=== PATIENT | male | born 1985 | race American Indian/Alaskan Native ===

== ENCOUNTER 2016-07-26 17:17 | Emergency (ER) | payer SELFPAY ==
[2016-07-26] MEDS ORDERED: ZOFRAN ODT PO ONE (18:28)
--- NOTE | 2016-07-26 18:29 | Emergency Department Report ---
Entered by ROSCOE LUDWIG, acting as scribe for REJI SALAZAR NP. Chief Complaint: Nausea/Vomiting/Diarrhea Stated Complaint: NAUSEA/VOMITING - HPI History of Present Illness: 30 y/o male, non toxic, NAD, well developed, c/o nausea and vomiting beginning yesterday. Associated chest pain, SOB, subjective fever, constipation but denies , RASCON, dizziness, blurry vision. Patient was seen at [facility] yesterday for the same c/o and was Dx with a incomplete small bowel obstruction versus ileus. - Exam Vital Signs: Vital Signs 07/26/16 17:29 Temperature 98.2 F Pulse Rate 62 Respiratory 18 Rate Blood Pressure 156/100 O2 Sat by Pulse 100 Oximetry Physical Exam: GENERAL: The patient is a well-developed, well-nourished male in no apparent distress. Patient is alert and oriented x3. ABDOMEN: Soft, nontender, and nondistended. Positive bowel sounds. Diffuse abdominal pain. No hepatosplenomegaly was noted. No guarding or rebound tenderness, negative epigastric bruit. Negative psoas sign, negative concepcion sign , negative McBurneys sign MSE screening note: Focused history and physical exam performed. Due to findings the following was ordered: CBC, CMP, Lipase, amylase, CT abdomen pelvis with contrast Dr. Gregory has been notified about patient symptoms Charge nurse has been notified to have patient seen in the ED as soon as possible for a CT of abdomen/pelvis with contrast Patient received 8 mg of Zofran ODT in triage. Patient discussed with doctor:: JESSE GREGORY (CT abdomen/contrast) ED Disposition for MSE Condition: Stable This documentation as recorded by the scribe,ROSCOE LUDWIG,accurately reflects the service I personally performed and the decisions made by ,REJI SALAZAR, KRISTOPHER.
[2016-07-26 18:47] LABS: Basophils % (Auto) 0.6 % (0.0-1.8); Eosinophils % (Auto) 0.1 % (0.0-4.3); Hematocrit 43.8 % (35.5-45.6); Hemoglobin 14.7 gm/dl (11.8-15.2); Mean Corpuscular HGB Conc 34 % (32-34); Mean Corpuscular Hemoglobin 30 pg (28-32); Mean Corpuscular Volume 89 fl (84-94); Platelet Count 276 K/mm3 (140-440); Red Blood Count 4.95 M/mm3 (3.65-5.03); Red Cell Distribution Width 14.3 % (13.2-15.2); White Blood Count 6.9 K/mm3 (4.5-11.0)
[2016-07-26 19:02] LABS: Alanine Aminotransferase 19 units/L (7-56); Albumin 4.4 g/dL (3.9-5); Albumin/Globulin Ratio 1.3 %; Alkaline Phosphatase 66 units/L (35-129); Amylase 74 units/L (27-131); Anion Gap 19 mmol/L; BUN/Creatinine Ratio 13.33; Blood Urea Nitrogen 12 mg/dL (9-20); Calcium 9.3 mg/dL (8.4-10.2); Carbon Dioxide 25 mmol/L (22-30); Chloride 96.8 mmol/L (98-107); Glucose 105 mg/dL (75-100); Lipase 35 units/L (13-60); Potassium 3.9 mmol/L (3.6-5.0); Sodium 137 mmol/L (137-145); Total Protein 7.9 g/dL (6.3-8.2)
[2016-07-26] MEDS ORDERED: REGLAN ONE (19:50)
[2016-07-26] MEDS ORDERED: REGLAN IV ONE (20:12)
--- NOTE | 2016-07-26 21:05 | Cat Scan Report ---
FINAL REPORT EXAM: CT ABDOMEN PELVIS W CON HISTORY: abd pain TECHNIQUE: Spiral CT scanning of the abdomen and pelvis after the uneventful administration of IV contrast. PRIORS: None. FINDINGS: Abdomen: Visualized lung bases grossly unremarkable. Liver without significant abnormality. Probable small hemangioma in the posterior and subdiaphragmatic region of right hepatic lobe measuring approximately 1 cm. Spleen without significant abnormality. Pancreas without significant abnormality. Kidneys without significant abnormality. Bilateral renal cysts, largest measuring approximately 3.5 cm in the right kidney. Adrenal glands without significant abnormality. Pelvis: Bowel grossly unremarkable. No significant free peritoneal fluid or apparent pneumoperitoneum. Abdominal aorta non-aneurysmal. Mild, probably acute compression fracture deformity in the L2 superior endplate without significant retropulsion. Remainder of osseous structures of axial skeleton grossly unremarkable. IMPRESSION: 1. Multiplanar reformations. 100 mL Omnipaque IV. 2. No acute intraperitoneal findings.
--- NOTE | 2016-07-26 21:35 | Emergency Department Report ---
ED Abdominal Pain HPI - General Chief Complaint: Nausea/Vomiting/Diarrhea Stated Complaint: NAUSEA/VOMITING Time Seen by Provider: 07/26/16 21:13 Source: patient, family Mode of arrival: Ambulatory Limitations: No Limitations - History of Present Illness Initial Comments: Patient is a 30-year-old male with no past medical history presenting to the ER with abdominal pain, nausea, vomiting. Patient is known to me and was evaluated last night for similar symptoms and found to have a partial ileus secondary to constipation. She reports he has been taking the Colace and MiraLAX, is passing gas, but has still not had a bowel movement. Patient reports he vomited up to 10 times today. Patient reports he did try to eat today with minimal success. Patient reports his back pain is minimal and is not bothering him today. Otherwise no fevers, chills, shortness of breath, chest pain, trauma, abdominal distention, trauma, falls, gait instability, saddle anesthesia, stool or urinary incontinence, travel, or sick contacts. Note: Patient has 2 separate medical records - Related Data Home Medications Medication Instructions Recorded Confirmed Last Taken No Known Home Medications [No 07/26/16 07/26/16 Unknown Reported Home Medications] Allergies Allergy/AdvReac Type Severity Reaction Status Date / Time No Known Allergies Allergy Unverified 07/26/16 17:29 ED Review of Systems ROS: Stated complaint: NAUSEA/VOMITING Other details as noted in HPI Comment: All other systems reviewed and negative ED Past Medical Hx - Past Medical History Previous Medical History?: Yes Additional medical history: n/v - Surgical History Past Surgical History?: No - Social History Smoking Status: Never Smoker Substance Use Type: Alcohol, Prescribed - Medications Home Medications: Home Medications Medication Instructions Recorded Confirmed Last Taken Type No Known Home Medications [No 07/26/16 07/26/16 Unknown History Reported Home Medications] ED Physical Exam - General Limitations: No Limitations General appearance: alert, in no apparent distress - Head Head exam: Present: atraumatic, normocephalic - Eye Eye exam: Present: normal appearance - ENT ENT exam: Present: mucous membranes moist - Neck Neck exam: Present: normal inspection - Respiratory Respiratory exam: Present: normal lung sounds bilaterally. Absent: respiratory distress - Cardiovascular Cardiovascular Exam: Present: regular rate, normal rhythm. Absent: systolic murmur, diastolic murmur, rubs, gallop - GI/Abdominal GI/Abdominal exam: Present: soft, normal bowel sounds. Absent: distended, tenderness, guarding, rebound, hyperactive bowel sounds, hypoactive bowel sounds , organomegaly, mass, pulsatile mass, hernia - Rectal Rectal exam: Present: normal inspection, normal rectal tone - exam: Present: normal inspection External exam: Present: normal external exam - Extremities Exam Extremities exam: Present: normal inspection - Back Exam Back exam: Present: normal inspection, full ROM, paraspinal tenderness (right). Absent: tenderness - Neurological Exam Neurological exam: Present: alert, oriented X3, CN II-XII intact, normal gait, reflexes normal. Absent: motor sensory deficit - Psychiatric Psychiatric exam: Present: normal affect, normal mood - Skin Skin exam: Present: warm, dry, intact, normal color. Absent: rash ED Course Vital Signs 07/26/16 17:29 Temperature 98.2 F Pulse Rate 62 Respiratory 18 Rate Blood Pressure 156/100 O2 Sat by Pulse 100 Oximetry - Reevaluation(s) Reevaluation #1: 07/26/16 22:41 Pt has been tolerating PO throughout ED stay. No episodes of vomiting Pt given mineral oil fleet enema with success BM ED Medical Decision Making - Lab Data Result diagrams: 07/26/16 18:27 07/26/16 18:27 - Radiology Data CT a/p: Spoke with Dr. Mckoy and reviewed results, (+)L2 mild superior endplate fx I discussed these findings with the patient, he was given a copy of the report and a diagram of the spine explaining the location of this fracture Pt instructed to follow up with Orthopedics Pt reports no BM, will ordere mineral oil enema Critical care attestation.: If time is entered above; I have spent that time in minutes in the direct care of this critically ill patient, excluding procedure time. ED Disposition Clinical Impression: Abdominal pain, Constipation, Fracture of lumbar spine without cord injury Disposition: DISCHARGED TO HOME OR SELFCARE Is pt being admited?: No Condition: Stable Instructions: Abdominal Pain (ED), Constipation (ED), Thoracolumbar Fracture ( ED) Referrals: SONNY BRANTLEY MD [Staff Physician] - 7-10 days
[2016-07-26] MEDS ORDERED: FLEET MINERAL OIL PR ONE (21:42)
[2016-07-26 22:48] VITALS: BP 147/92
[2016-07-26 22:58] LABS: Bilirubin,Urine NEG (Negative); Blood,Urine SM (Negative); Ketones,Urine 20 mg/dL (Negative); Leukocyte Esterase,Urine NEG (Negative); Nitrite,Urine NEG (Negative); Protein,Urine <15 mg/dL mg/dL (Negative)
== END 2016-07-26 22:49 | disposition home or self-care (01) ==
LOC: ED 17:17
DX: S32.029A Unspecified fracture of second lumbar vertebra, initial encounter for closed fracture (principal); K59.00 Constipation, unspecified; X58.XXXA Exposure to other specified factors, initial encounter; Y93.89 Activity, other specified; Y99.8 Other external cause status; Y92.89 Other specified places as the place of occurrence of the external cause
CPT/HCPCS: 36415; 74177; 80053; 81001; 82150; 83690; 85025; 96374; 99284; J2765; Q9967; Q0162

== ENCOUNTER 2018-09-30 11:11 | Emergency (ER) | payer SELFPAY ==
--- NOTE | 2018-09-30 11:22 | Emergency Department Report ---
Blank Doc - Documentation Documentation: This is a 33-year-old male that presents with left eyelid swelling with foreign body sensation. This initial assessment/diagnostic orders/clinical plan/treatment(s) is/are subject to change based on patient's health status, clinical progression and re- assessment by fellow clinical providers in the ED. Further treatment and workup at subsequent clinical providers discretion. Patient/guardians urged not to elope from the ED as their condition may be serious if not clinically assessed and managed. Initial orders include: 1- Patient sent to [facility] for further evaluation and treatment 2- visual test 3- zabala lamp
--- NOTE | 2018-09-30 12:48 | Emergency Department Report ---
Eye Injury/Foreign Body - HPI Duration: 1 Day Eye Location: Left Tetanus Status: Up to Date Eye Symptoms: Eye Pain: No, Blurred Vision: No, Eye Redness: Yes, Grinding/Hammering Metal: No, Used Eye Protection: No, Contact Lens Use: No, Recalls Injury: No, Photophobia: No Other History: 33-year-old -[place] female presents to the emergency room complaining of left eyelid swelling. Patient denies any injury to his eye denies any visual change denies any pain. Patient reports that it itches at times he is tried flushing his eyes using allergy drops. Patient admits to clear discharge denies any matting this eyelashes. Has no past medical history takes no medications on a daily cyst no known drug allergies. ED Review of Systems ROS: Stated complaint: SWOLLEN EYELIDS Other details as noted in HPI Comment: All other systems reviewed and negative Eyes: eye discharge ED Past Medical Hx - Past Medical History Previous Medical History?: No Additional medical history: n/v - Surgical History Past Surgical History?: Yes Additional Surgical History: 96- hernia - Social History Smoking Status: Never Smoker Substance Use Type: Alcohol, Prescribed - Medications Home Medications: Home Medications Medication Instructions Recorded Confirmed Last Taken Type Bacitracin [Bacitracin Ophth] 1 applicatio OP TID 10 Days #1 tube 09/30/18 Unknown Rx Eye Injury Exam - Exam General: Vital signs noted. No distress. Alert and acting appropriately. GENERAL APPEARANCE: Well developed, well nourished, in no acute distress. SKIN: Inspection of the skin reveals no rashes, ulcerations or petechiae. HEENT: The sclerae were anicteric and conjunctivae were pink and moist. Extraocular movements were intact and pupils were equal, round, and reactive to light with normal accommodation. External inspection of the upper eyelid of the left eye is erythematous erythematous no discharge appreciated nontender to palpate, NEUROLOGIC: Alert and oriented x 3. Normal affect. Gait was normal. Normal deep tendon reflexes with no pathological reflexes. Sensation to touch was normal. Critical care attestation.: If time is entered above; I have spent that time in minutes in the direct care of this critically ill patient, excluding procedure time. ED Disposition Clinical Impression: Swelling of left upper eyelid Blepharitis of eyelid of left eye Qualifiers: Blepharitis type: unspecified type Eyelid: upper Qualified Code(s): H01.004 - Unspecified blepharitis left upper eyelid Disposition: DC- TO HOME OR SELFCARE Is pt being admited?: No Does the pt Need Aspirin: No Condition: Stable Instructions: Blepharitis (ED) Additional Instructions: Use medications as prescribed. Follow up with her primary care provider if his symptoms persist or gets worse. Prescriptions: Bacitracin [Bacitracin Ophth] 1 applicatio OP TID 10 Days #1 tube Referrals: ASHVIN CA MD [Staff Physician] - 3-5 Days
== END 2018-09-30 13:50 | disposition home or self-care (01) ==
LOC: ED 11:11
DX: H01.004 Unspecified blepharitis left upper eyelid (principal); Z98.890 Other specified postprocedural states; Z79.899 Other long term (current) drug therapy
CPT/HCPCS: 99281